=== PATIENT | male | born 2000 | race African-American/Black ===

== ENCOUNTER 2020-11-27 12:10 | Emergency (ER) | payer OTHER ==
[~2020-11-27] VITALS: Ht 170.2 cm; Wt 65.8 kg
[2020-11-27] MEDS ORDERED: NOHOMEMEDICATIONS (12:31)
[2020-11-27 12:35] LABS: URINE BILIRUBIN NEGATIVE (Negative); URINE BLOOD NEGATIVE (Negative); URINE CLARITY CLEAR; URINE COLOR YELLOW; URINE GLUCOSE-RANDOM* NEGATIVE (Negative); URINE KETONES NEGATIVE (Negative); URINE LEUKOCYTES-REFLEX NEGATIVE (Negative); URINE NITRITE-REFLEX NEGATIVE (Negative); URINE PROTEIN (DIPSTICK) NEGATIVE (Negative); URINE UROBILINOGEN 0.2 E.U./dl (0.2-1.0)
[2020-11-27 12:36] LABS: ABSOLUTE NEUTROPHILS 2.4 thou/uL (1.4-8.2); BASOPHILS 1.1 % (0.0-2.0); EOSINOPHILS 4.8 % (0.0-3.0); HEMATOCRIT 46.8 % (42.0-52.0); HEMOGLOBIN 16.1 gm/dL (14.0-18.0); LYMPHOCYTES 34.6 % (24.0-44.0); MCH 32.7 pg (26.0-34.0); MCHC 34.3 g/dL (28.0-37.0); MCV 95.2 fL (80.0-100.0); MONOCYTES 10.8 % (1.0-8.0); PLATELET COUNT 226 thou/uL (150-400); POLYS 48.7 % (36.0-66.0); RBC 4.91 mil/uL (4.50-6.00); RDW 12.8 % (10.5-14.5); WBC 4.9 thou/uL (4.0-11.0)
[2020-11-27 12:44] LABS: CALCIUM 8.9 mg/dL (8.5-10.1); CREATININE 0.9 mg/dL (0.7-1.3); POTASSIUM 3.7 mmol/L (3.5-5.1)
[2020-11-27 12:52] LABS: ALBUMIN 4.1 g/dL (3.4-5.0); TOTAL BILIRUBIN 0.7 mg/dL (0.2-1.0); TOTAL PROTEIN 7.5 g/dL (6.4-8.2)
[2020-11-27] MEDS ORDERED: ZOFRAN ODT4 MG PO (13:13)
[2020-11-27 13:15] VITALS: BP 137/72
== END 2020-11-27 13:15 | disposition home or self-care (01) ==
LOC: ER 12:10
PROVIDERS: Emergency Medicine
DX: R10.30 Lower abdominal pain, unspecified (principal)